=== PATIENT | female | born 1950 | race Caucasian/White ===

== ENCOUNTER 2024-04-28 06:22 | Observation (INO) | payer OTHER ==
[2024-04-26 12:01] LABS: Absolute Basophils 0.1 K/uL (0-0.5); Absolute Eosinophils 0.1 K/uL (0-0.5); Absolute Lymphocytes (CBC) 1.2 K/uL (0.7-4.9); Absolute Neutrophil 3.1 K/uL (1.8-8.0); Basophils % 1.1 % (0-1.3); Eosinophils % 1.3 % (0-4.4); Hematocrit 41.8 % (36.0-45.0); Hemoglobin 14.4 g/dL (12.0-15.0); Lymphocytes % 21.8 % (15.3-44.8); MCH 30.8 pg (27.0-35.0); MCHC 34.4 g/dL (32.0-36.0); MCV 89.7 fL (80-100); Monocytes % 19.1 % (3.3-12.3); Neutrophils % 56.7 % (41.7-73.7); Nucleated Red Blood Cells % 0.1 % (0-0); Platelets 182 thou/uL (152-406); RBC Red Blood Cell Count 4.66 M/uL (3.86-4.86); Red Cell Distribution Width 14.3 % (12.1-15.2)
[2024-04-26 12:02] LABS: Sqamous Epithelial <5 /HPF (None Seen); Urine Bacteria 20-50 /HPF (<20); Urine Bilirubin NEGATIVE (Negative); Urine Blood Negative (Negative); Urine Clarity Extremely Turbid (Clear); Urine Color Yellow (Yellow); Urine Culture Reflex Order REFLEXED; Urine Glucose NEGATIVE (Negative); Urine Ketones NEGATIVE (Negative); Urine Microscopic Reflex YN ORDER UMIC; Urine Mucus Slight /HPF (None Seen); Urine Nitrite 2+ (Negative); Urine Protein NEGATIVE (Negative); Urine RBC <5 /HPF (None Seen); Urine Urobilinogen Normal (Normal); Urine WBC >50 /HPF (<5); Urine WBC Clump Occasional /HPF (None Seen)
[2024-04-26 12:08] LABS: PT Prothrombin Time 11.3 SECONDS (10-13.0); PTT, Activated Partial Thromb 31.1 SECONDS (27.2-37.4); Protime INR 0.99
[2024-04-26 12:19] LABS: Anion Gap 6.6 mEq/L (5.0-15.0); Potassium 4.6 mEq/L (3.5-5.1)
[2024-04-26 13:28] LABS: Blood Morphology Comment NOT SEEN (NOT SEEN); Platelet Estimate ADEQ; White Blood Cell Scan OK (OK)
--- NOTE | 2024-04-27 12:30 | EKG ---
Test Date: 2024-04-26 Test Time: 11:40:26 [place] Supervisor: JAYDON MEASUREMENT RESULTS: Intervals: Rate: 69 ME: 122 QRSD: 82 QT: 390 QTc: 417 [place]: P: 83 ME: 122 QRS: 73 T: 69 INTERPRETIVE STATEMENTS: Normal sinus rhythm Normal ECG No previous ECG available for comparison Electronically Signed On 04-27-24 12:25:54 CDT by Monty Grover
[2024-04-28] MEDS: Ringers Lactate 1,000 ML IV ONE ×2 (06:50→10:02)
[2024-04-28] MEDS: CEFAZOLIN SODIUM 1 GM/VIAL ONE (07:04)
[2024-04-28] MEDS: LIDOCAINE HCL/EPINEPHRINE 20 ML MDV ONE (07:04)
[2024-04-28] MEDS: NA CHLORIDE 0.9% 100 ML ONE (07:06)
[2024-04-28] MEDS ORDERED: dexAMETHasone 10 MG/ML VIAL ONE (07:11)
[2024-04-28] MEDS ORDERED: LIDOCAINE 1% MPF 5 ML VIAL ONE (07:11)
[2024-04-28] MEDS ORDERED: ONDANSETRON 4 MG/2 ML VIAL ONE (07:11)
[2024-04-28] MEDS ORDERED: KETAMINE HCL IN 0.9 % NACL 50 MG/5 ML SYRINGE IV ONE (07:12)
[2024-04-28] MEDS ORDERED: FENTANYL CITR 100 MCG/2 ML ONE ×2 (07:12→09:43)
[2024-04-28] MEDS ORDERED: propofoL 200 MG/20 ML VIAL IV ONE (07:12)
[2024-04-28] MEDS ORDERED: ROCURONIUM 50 MG/5 ML VIAL IV ONE (07:12)
[2024-04-28] MEDS ORDERED: MIDAZOLAM HCL 2 MG/2 ML INJ ONE (07:12)
[2024-04-28] MEDS: CEFAZOLIN SODIUM 2 GM/VIAL ONE (08:15)
[2024-04-28] MEDS: VASOPRESSIN 20 UNIT/ML VIAL ONE (08:31)
[2024-04-28] MEDS ORDERED: MORPHINE 2 MG/ML SYR IV PRN (11:17)
[2024-04-28] MEDS ORDERED: ONDANSETRON 4 MG/2 ML VIAL IV PRN (11:17)
[2024-04-28] MEDS ORDERED: PROMETHAZINE INJ 25 MG/ML AMP IV PRN (11:17)
--- NOTE | 2024-04-28 11:26 | P.BOP ---
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 IRINA Postoperative diagnosis: same and posterior enterocele, apical as well Primary procedure: anterior wall repair w/biol graft, anthony SSLF colpopexy, post wall+enterocele Secondary procedure: repairs, perineorrhaphy, TVT-O cysto [place]ond Worker: Iwona Stewart Estimated blood loss: 100 Specimen: none Findings: 0/+2/-1/4.5/mod/7/0/0/na Anesthesia: General Complications: None Drain(s): Urinary catheter Implants: axis dermis graft and TVT-O Fluids & blood products: UO 100 Transferred to: Recovery Room Condition: Good
--- OUTSIDE RECORDS SUMMARY | 2024-04-28 12:42 | XMS REPORT | Continuity of Care Document ---
Author Name Unknown Address [address] [facility] [address] [place] [address] [facility] [place] Address [address] [facility] 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 Problem Active 2023-02 00:00: 00 [facility] 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 my Problem Active 2023-02 00:00: 00 [facility] 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 Problem Active 2023-02 00:00: 00 [facility] Atrophic vaginitis Atrophic Vaginitis Problem Active 2023-02 00:00: 00 [facility] Heartburn Heartburn Problem Active 2023-02 00:00: 00 [facility] Urge incontinen ce of urine Urge Incontinen ce of Urine Problem Active 2023-02 00:00: 00 [facility] Type 2 diabetes mellitus Type 2 Diabetes Mellitus Problem Active 2023-02 00:00: 00 [facility] Hyperlipid emia Hyperlipid emia Problem Active 2023-02 00:00: 00 [facility] Endometrit is Endometrit is Problem Active 2023-02 00:00: 00 [facility] Allergies, Adverse Reactions, Alerts Allergy Name Allergy Type Status Severity Reaction(s) Onset Date Inactive Date Treating Clinician Comments Source Penicill ins DA Active U 09-10 00:00: 00 [facility] Sulfa (Sulfona mide Antibiot ics) DA Active U 09-10 00:00: 00 [facility] povidone -iodine DA Active U 09-10 00:00: 00 [facility] adhesive DA [facility]SULFONA MIDE ANTIBIOT ICS) Allergy to substanc e Active [facility] Latex Allergy to substanc e Active [facility] PENICILL INS Allergy to substanc e Active [facility] Social History Smoking Status Start Date Stop Date Source Never Smoker [facility] Medications Ordered Medication Name Filled Medication Name Start Date Stop Date Current Medication? Ordering Clinician Indication Dosage Frequency Signature (SIG) Comments Components Source atorvastati n atorvastati n No atorvastat in [facility] Azo Cranberry Azo Cranberry No Azo Cranberry [facility] Centrum Silver Centrum Silver No Centrum Silver [facility] Citracal Regular Citracal Regular No Citracal Regular [facility] meloxicam meloxicam No meloxicam [facility] omeprazole omeprazole No omeprazole [facility] estradiol 0.01% (0.1 mg/gram) vaginal cream Insert 0.5 g 3 times a week by vaginal route for 90 days. estradiol 0.01% (0.1 mg/gram) vaginal cream Insert 0.5 g 3 times a week by vaginal route for 90 days. No .5g Q56H estradiol 0.01% (0.1 mg/gram) vaginal cream Insert 0.5 g 3 times a week by vaginal route for 90 days. [facility] solifenacin 5 mg tablet Take 1 tablet every day by oral route for 90 days. solifenacin 5 mg tablet Take 1 tablet every day by oral route for 90 days. No 1 Q1D solifenaci n 5 mg tablet Take 1 tablet every day by oral route for 90 days. [facility] Vital Signs Vital Name Observation Time Observation Value Comments S ource BP Diastolic 2024-04-20 00:00:00 60 mm[Hg] [facility] BP Systolic 2024-04-20 00:00:00 121 mm[Hg] [facility] BMI (Body Mass Index) 2024-04-20 00:00:00 23 kg/m2 [facility] Height 2024-04-20 00:00:00 62 [in_i] [facility] Body Weight 2024-04-20 00:00:00 125.8 [lb_av] [facility] BP Systolic 2024-01-12 00:00:00 147 mm[Hg] [facility] BMI (Body Mass Index) 2024-01-12 00:00:00 24.1 kg/m2 [facility] Body Weight 2024-01-12 00:00:00 132 [lb_av] [facility] Height 2024-01-12 00:00:00 62 [in_i] [facility] BP Diastolic 2024-01-12 00:00:00 62 mm[Hg] [facility] BP Systolic 2023-12-23 00:00:00 181 mm[Hg] [facility] BP Diastolic 2023-12-23 00:00:00 75 mm[Hg] [facility] Body Weight 2023-12-23 00:00:00 132 [lb_av] [facility] BMI (Body Mass Index) 2023-12-23 00:00:00 24.1 kg/m2 [facility] Height 2023-12-23 00:00:00 62 [in_i] [facility] WEIGHT 2021-09-10 09:43:00 62.118921 kg HEIGHT 2021-09-10 09:43:00 160.02 cm Procedures Procedure Date / Time Performed Performing Clinicia n Source US TRANSVAGINAL 2023-12-25 00:00:00 [facility] Ophthalmology - Cataract Surgery 2013-02-09 00:00:00 [facility] Procedure on Neck 2012-12-24 00:00:00 [facility] Hysterectomy 1979-02-09 00:00:00 [facility] ed[facility] Encounters Start Date/Time End Date/Time Encounter Type Admission Type Attending Clinicians Care Facility Care Department Encounter ID Source 2022-12-19 12:45:00 Inpatient R Holster, Aguila [facility] [id number] [facility] 2024-04-20 00:00:00 2024-04-20 00:00:00 NATIVIDAD Munoz: [address], [place] [address] , Ph. [facility] - GC_GCBZW_Wi urban Con* [id number] [facility] 2024-01-29 00:00:00 2024-01-29 00:00:00 Sejal John MD: [address], [place] [address] , Ph. [facility] - GC_GCBZW_Natasha duggan Con* [id number] [facility] 2024-01-26 00:00:00 2024-01-26 00:00:00 NATIVIDAD Munoz: [address], [place] [address] , Ph. [facility] - GC_GCBZW_Natasha duggan Con* [id number] [facility] 2024-01-12 00:00:00 2024-01-12 00:00:00 Sejal John MD: [address], [place] [address] , Ph. [facility] - GC_GCBZW_Wi urban Con* [id number] [facility] 2023-12-25 00:00:00 2023-12-25 00:00:00 Sejal John MD: [address], [place] [address] , Ph. [facility] - GC_GCBZW_Natasha Andujar* [id number] [facility] 2023-12-23 00:00:00 2023-12-23 00:00:00 Sejal John MD: [address] [place] [address] [address], [place] [address] , Ph. [facility] - GC_GCBZW_Natasha Andujar* [id number] [facility] 2021-12-11 10:43:00 2021-12-11 10:44:00 Outpatient Kajal FullerAguila bradshaw [facility] [id number] [facility] 2021-09-11 07:00:00 2021-09-11 13:20:00 Outpatient Tai Guzman [facility] [id number] [facility] 2021-09-06 13:36:00 2021-09-06 13:37:00 Outpatient R Tai Aguillon [facility] [id number] [facility] 2021-06-29 16:30:00 2021-06-29 16:30:00 Outpatient Kajal Terry Duke [facility] [id number] [facility] 2021-05-10 12:57:00 2021-06-08 23:59:00 Outpatient R Harrison Duke [facility] [id number] [facility] 2021-05-02 09:00:00 2021-05-09 23:59:00 Outpatient Duke Bowden [facility] [id number] [facility] 2021-04-30 09:00:00 2021-04-30 09:00:00 Outpatient Duke Bowden [facility] [id number] [facility] 2021-04-25 09:00:00 2021-04-25 09:00:00 Outpatient Duke Bowden [facility] [id number] [facility] 2021-04-23 09:30:00 2021-04-23 09:30:00 Outpatient R Duke Terry [facility] [id number] [facility] 2021-04-17 09:00:00 2021-04-17 09:00:00 Outpatient R Duke Terry [facility] [id number] [facility] 2021-04-15 09:00:00 2021-04-15 09:00:00 Outpatient R Duke Terry [facility] [id number] [facility] 2021-04-11 15:51:00 2021-04-11 15:51:00 Outpatient R HarrisonDuke [facility] [id number] [facility] 2021-04-08 16:00:00 2021-04-08 23:59:00 Outpatient R HarrisonDuke [facility] [id number] [facility] 2021-04-04 11:30:00 2021-04-04 11:30:00 Outpatient R HarrisonDuke [facility] [id number] [facility] 2021-04-02 14:56:00 2021-04-02 14:56:00 Outpatient R HarrisonDuke [facility] [id number] [facility] 2021-02-27 12:32:00 2021-02-27 12:33:00 Outpatient Jessica Paige [facility] [id number] [facility] 2020-12-10 11:46:00 2020-12-10 11:47:00 Outpatient Aguila Hastings [facility] [id number] [facility] 2019-12-06 11:20:00 2019-12-06 11:21:00 Outpatient Aguila Hastings [facility] [id number] [facility] 2019-12-02 11:15:00 2019-12-02 11:15:00 Outpatient Aguila Patricia [facility] [id number] [facility] 2018-11-29 10:34:00 2018-11-29 10:35:00 Outpatient R Aguila Patricia [facility] [id number] [facility] Results Test Description Test Time Test Comments Results Result Co mments Source [facility] [id number] 13:54:00* Test Item Value Reference Range Interpretation Comme nts Leukocytes (test code = Leukocytes) 2+ Nitrite (test code = Nitrite) negative Urobilinogen (test code = Urobilinogen) Normal Protein (test code = Protein) Negative pH (test code = pH) 7.0 Blood (test code = Blood) Negative Specific Dora (test code = Specific Dora) 1.015 Ketone (test code = Ketone) Negative Bilirubin (test code = Bilirubin) Negative Glucose (test code = Glucose) Negative Appearance (test code = Appearance) Clear Color (test code = Color) Yellow [facility] SURGICAL PATHOLOGY, LEVEL [id number] 13:12:00 [facility] [address] [place] [address] Laboratory Printed: 09/16/21 1312 BETSY DAEMPathology Page: 1 Patient: TRAVIS ALFONSO Birthdate: 1950 Age/Sex: 70/F Spec#: [id number]: Tai Aguillon Jr, MD Specimen Date: 09/11/21 Received Date: 09/11/21 Specimen: POLYP, RECTUM CLINICAL DIAGNOSIS polyp PATHOLOGIC DIAGNOSIS Rectum, distal rectal polyp, stitch distal: - Squamocolumnar junction mucosa with polypoid architecture due to focal areas of mucosal inflammation. - Focal hyperplastic/serrated features associated with inflammation. - Negative for dysplasia or malignancy. COMMENT: This case was reviewed in intradepartmental consultation. Pathologist:Xochilt Grant MD Entered by:09/16/21 - 131 TREVER----- ------- PROCEDURES:[id number] GROSS DESCRIPTION A. POLYP, RECTUM DISTAL The specimen is received in 10% formalin, and is labeled with the patient's information and"distal rectal polyp, stitch distal". The specimen consists of a triangular polypoid tissuemeasuring 2.4 x 1.8 x 0.5 cm in greatest dimensions. The deep margin is inked black. The Patient: TRAVIS ALFONSO Re09/11/21Loc: PAUAL MR#: [id number] CONTINUED ON NEXT PAGE Dis: Sta: JOSE MITCHELL [address] [address] Laboratory Printed: 09/16/21 [facility] DAEMPathology Page: 2 Patient: TRAVIS ALFONSO [id number] (Continued) GROSS DESCRIPTION (Continued) distal end is inked blue. Perpendicular cross sections are submitted in two cassettes, A1-2. Dictated by: Akanksha Palacios Entered by: 09/12/21 - 1153 [facility] MICROSCOPIC DESCRIPTION A microscopic examination was performed to arrive at the diagnostic conclusion reported. Signed (Electronically Signed) Xochilt Grant MD 09/16/21 Patient: TRAVIS ALFONSO Re09/11/21Loc: CHAD MR#: [id number] END OF REPORT Dis: Sta: DEP SDCSARS AG Rapid Tst PreProc [id number] 21:24:00* Test Item Value Reference Range Interpretation Comme nts SARS AG Rapid Tst PreProc ONLY (test code = SARSAG) Confirmatory PCR testing is recommended if the antigen test SARS AG Rapid Tst PreProc ONLY (test code = SARSAG1) the patient. SARS AG Rapid Tst PreProc ONLY (test code = SARSAG1) SARSAGTEST SARS AG Rapid Tst PreProc ONLY (test code = SARSAG1) N [id number] 15:27:00* Test Item Value Reference Range Interpretation Comme nts Hematology (test code = WBCT) 5.0 10x3/uL 3.5-10.5 N Hematology (test code = RBCT) 4.50 10x6/uL 3.90-5.03 N Hematology (test code = HGBT) 13.9 g/dL 12.0-15.5 N Hematology (test code = HCTT) 41.5 % 34.9-44.5 N Hematology (test code = MCV) 92.2 fl 81.6-98.3 N Hematology (test code = MCH) 30.9 pg 27.0-33.0 N Hematology (test code = MCHC) 33.5 g/dL 32.0-36.0 N Hematology (test code = RDW) 12.7 % 11.5-14.5 N Hematology (test code = PLTT) 200 10x3/uL 150-450 N Hematology (test code = MPV) 11.8 fl 7.4-10.4 H Hematology (test code = NE) 47 % 42-75 N Hematology (test code = BA) 2 % 5-11 L Hematology (test code = LY) 24 % 21-51 N Hematology (test code = YASMIN) 6 % 0-10 N Hematology (test code = MO) 19 % 0-10 H Hematology (test code = BAS) 2 % 0-2 N Hematology (test code = PCOMMENT) Appears Adequate [id number] 15:24:00* Test Item Value Reference Range Interpretation Comme nts Chemistry (test code = NA-T) 142 mmol/L 136-145 N Chemistry (test code = K-T) 4.8 mmol/L 3.5-5.1 N Chemistry (test code = CL) 102 mmol/L 98-107 N Chemistry (test code = CO2) 31 mmol/L 23-31 N Chemistry (test code = ANGP) 14 mmol/L 10-20 N Chemistry (test code = BUN) 20 mg/dL 9.8-20.1 N Chemistry (test code = CREATT) 0.88 mg/dL 0.6-1.1 N Chemistry (test code = EGFRCR) 70 Reference Range for Estimated GFR: Greater than 90 mL/min/1.73 p4Sqhgpwua eGFR is based on the CKD-EPI 2020 equation thatdoes not use a race coefficient. Chemistry (test code = GLU-T) 101 mg/dL 83-110 N Chemistry (test code = CA) 10.9 mg/dL 7.8-10.44 H Chemistry (test code = TBILI-T) 0.5 mg/dL 0.2-1.2 N Chemistry (test code = TP) 7.6 g/dL 5.8-8.1 N Chemistry (test code = ALB) 5.1 g/dL 3.4-4.8 H Chemistry (test code = GLOB) 2.5 g/dL 2.4-3.5 N Chemistry (test code = AG) 2.0 g/dL 1.2-2.2 N Chemistry (test code = ALP) 83 U/L 40-110 N Chemistry (test code = AST) 21 U/L 5-34 N Chemistry (test code = ALT) 21 U/L 8-55 N MAMMO Bilat [facility] : 1950 Sex: F Pt Name: TRAVIS ALFONSO [address] Phys: [place] [address] : 1950 Age: 71 SEX:F [phone] Exam Date: 12/11/21 Status: REG CLI Acct: [id number] Loc: BICMAMMO Pt Unit #: [id number] Report #: [id number] CC: Aguila Patricia MD MAMMOGRAPHY REPORT Report Status: Signed Order # Category/Exam [id number] MMO/MAMMO Bilat Screen DDI+LUDWIG ([id number]): . Results 2 Bilateral MAMMO Bilat Screen DDI+LUDWIG. CLINICAL HISTORY: Patient is 71 years old and is seen for screening. The patient has the following family history of breast cancer: sister, at age 65. The patient has no personal history of cancer. The patient has a history of right Lumpectomy in MID 70'S - benign. VIEWS: The views performed were: bilateral craniocaudal with tomosynthesis and bilateral me diolateral oblique with tomosynthesis. FILMS COMPARED: The present examination has been compared toprior imaging studies performed at 11/29/2018, 12/06/2019 and 12/10/2020. This study has been interpreted with the assistance of computer- aided detection. MAMMOGRAM FINDINGS: There are scattered fibroglandular densities. Benign calcifications are noted bilaterally. Nodularity is stable. There are no suspicious masses, suspicious calcifications, or new areas of architectural distortion. IMPRESSION: THERE IS NO MAMMOGRAPHIC EVIDENCE OF MALIGNANCY. A ROUTINE FOLLOW-UP MAMMOGRAM IN 1 YEAR IS RECOMMENDED. THE RESULTS OF THIS EXAM WERE SENT TO THE PATIENT. ACR BI-RADS Category 2 - Benign finding MAMMOGRAPHY NOTE: 1. A negative mammogram report should not delay a biopsy if a dominant of clinicallysuspicious mass is present. 2. Approximately 10% to 15% of breast cancers are not detected by mammography. 3. Adenosis and dense breasts may obscure an underlying neoplasm. Reported by: AJ BRUSH MD Electonically Signed: [id number] Reported By: Mario Brush MD Electronically Signed Date/Time: 12/11/21 1454 Technologist: [email or web address] Dictated Date/Time: 12/11/21 Transcribed Date/Time: 12/11/21MAMMO Bilat Screen DDI[facility]LUDWIG [facility] TRA[facility]: 1950 Sex: F Pt Name: TRAVIS ALFONSO [address] Phys: [place] [address] : 1950 Age: 71 SEX:F [phone] Exam Date: 12/11/21 Status: REG CLI Acct: [id number] Loc: BICMAMMO Pt Unit #: [id number] Report #: [id number] CC: Aguila Patricia MD MAMMOGRAPHY REPORT Report Status: Signed Order # Category/Exam [id number] MMO/MAMMO Bilat Screen DDI+LUDWIG ([id number]): . Results 2 Bilateral MAMMO Bilat Screen [facility]DI[facility]LUDWIG. CLINICAL HISTORY: [facility] is 71 [facility] The patient has the following family history of breast cancer: sister, at age 65. The patient has no personal history of cancer. The patient has a history of right Lumpectomy in MID 70'S -benign. VIEWS: The views performed were: bilateral craniocaudal with tomosynthesis and bilateral mediolateral oblique with tomosynthesis. FILMS COMPARED: The present examination has been compared to prior imaging studies performed at 11/29/2018, 12/06/2019 and 12/10/2020. This study has been interpreted with the assistance of computer- aided detection. MAMMOGRAM FINDINGS: There are scattered fibroglandular densities. Benign calcifications are noted bilaterally. Nodularity is stable. There are nosuspicious masses, suspicious calcifications, or new areas of architectural distortion. IMPRESSION:THERE IS NO MAMMOGRAPHIC EVIDENCE OF MALIGNANCY. A ROUTINE FOLLOW-UP MAMMOGRAM IN 1 YEAR IS RECOMMENDED. THE RESULTS OF THIS EXAM WERE SENT TO THE PATIENT. ACR BI-RADS Category 2 - Benign finding MAMMOGRAPHY NOTE: 1. A negative mammogram report should not delay a biopsy if a dominant of clinically suspicious mass is present. 2. Approximately 10% to 15% of breast cancers are not detected by mammography. 3. Adenosis and dense breasts may obscure an underlying neoplasm. Reported by: AJ BRUSH MD Electonically Signed: [id number] Reported By: Mario Brush MD ElectronicallySigned Date/Time: 12/11/21 1454 Technologist: NEHA Dictated Date/Time: 12/11/21 Transcribed Date/Time: 12/11/21XR Cerv Sp Ap Lat STANDARD [facility] BRYANName: TRAVIS ALFONSO : 1950 [facility] Pt Name: TRAVIS ALFONSO [address] Phys: [place] [address] : 1950 Age: 70 SEX:F [phone] Exam Date: 02/27/21 Status: REGCLI Acct: [id number] Loc: TBSIINJG Pt Unit #: [id number] Report #: [id number] CC: Jessica Keating PA-C IMAGING SERVICES REPORT Order # Category/Exam [id number] RAD/XR Cerv Sp Ap Lat STANDARD ([id number]): . Results Cervical spine 3 views: 02/27/2021 COMPARISON: 08/20/2012 HISTORY: Degenerative disc disease, right arm pain and neck pain FINDINGS: Anterior discectomy and fusion hardware is present at C5-6, unchanged when compared to the 08/20/2012 examination. There is an intervertebral disc deviceat C5-6. There is disc space narrowing and anterior osteophyte formation at C6-7. There is mild anterolisthesis at C6-7 measuring 2-3 mm. There is no prevertebral soft tissue abnormality noted. Thereare degenerative changes at the atlantoaxial interspace. There is disc space narrowing with degenerative endplate change and anterior osteophyte formation at C7-T1, stable. Open-mouth odontoid view demonstrate a normal-appearing densand C1-2 articulation. Frontal imaging demonstrates lower cervicalspine facet and uncovertebral osteophyte formation, right greater than left, most prominent at C6-7. IMPRESSION: Postoperative and degenerative change as detailed above. Reported By: Chase Schneider MD Electronically Signed Date/Time: 02/27/21 1253 Technologist: KARRIE Dictated Date/Time: 02/27/21 1251 Transcribed Date/Time:MRI Cervical Spine WO Con [facility] BR[facility]ANName[facility] TRAVIS ALFONSO : 1950 [facility] Pt Name: TRAVIS ALFONSO [address] Phys: [place] [address] : 1950 Age: 70 SEX:F [phone] Exam Date: 02/27/21 Status: REG CLI Acct: [id number] Loc: TBSIIMAG Pt Unit #: [id number] Report #: [id number] CC: Jessica Keating PA-C MRI REPORT Order # Category/Exam [id number] MRI/MRI Cervical Spine WO Con ([id number]): . Results EXAM: MRI cervical spine without contrast HISTORY: Right arm and neck pain COMPARISON: 02/27/2021 TECHNIQUE: Multiplanar multisequence MR images were obtained of the cervical spine without contrast. FINDINGS: The patient is status post anterior fusion of C5 and C6. The vertebral bodies and intervertebral discs demonstrate normal height and alignment without fracture or subluxation. The visualized cord demonstrates normal signal throughout. The central canal within the cord is barely visualized in the lower cervical region. The craniocervical junction is unremarkable. The prevertebral soft tissues are unremarkable. No paraspinal soft tissue abnormality is seen. C2/3: No significant posterior bulge or protrusion. Mild left posterior facet arthrosis. No central canal stenosis. No neural foraminal stenosis. C3/4: No significant posterior bulge or protrusion. Moderate left posterior facet arthrosis. No central canal stenosis. No neural foraminal stenosis. C4/5: No significant posterior bulge or protrusion. Mild bilateral posterior facet arthrosis. No central canal stenosis. Mild bilateralneural foraminal stenosis. C5/6: Small posterior disc osteophyte complex. No posterior facet arthrosis. Mild central canal stenosis. No neural foraminal stenosis. C6/7: Minimal posterior disc osteophyte complex. Moderate right posterior facet arthrosis. Mild central canal stenosis. Mild bilateral neural foraminal stenosis. C7/T1: Small generalized concentric disc bulge. No posterior facet arthrosis. No central canal stenosis. No neural foraminal stenosis. IMPRESSION: Degenerative and postsurgical changes of cervical spine as above. Reported By: Jr Zhou MD Electronically Signed Date/Time: 02/27/21 133 Technologist: KARRIE Dictated Date/Time: 02/27/21 1334 Transcribed Date/Time:MAMMO Bilat Screen DDI+LUDWIG [facility]: TRAVIS ALFONSO ANDRE : 1950 Sex: F Pt Name: TRAVIS ALFONSO [address] Phys: Aguila Patricia MD [place] [address] : 1950 Age: 70 SEX:F [phone] Exam Date: 12/10/20 Status: REG CLI Acct: [id number] Loc: BICMAMMO Pt Unit #: [id number] Report #: [id number] CC: Aguila Patricia MD MAMMOGRAPHY REPORT Order # Category/Exam [id number] MMO/MAMMO Bilat Screen DDI+LUDWIG ([id number]): . Results 2 Bilateral MAMMO Bilat Screen DDI+LUDWIG. CLINICAL HISTORY: Patient is 70 years old and is seen for screening. The patient has no family history of breast cancer. The patient has no personal history of cancer. The patient has a history of right Lumpectomy in MID 70'S - benign. VIEWS: The views performed were: bilateralcraniocaudal with tomosynthesis and bilateral mediolateral oblique with tomosynthesis. FILMS COMPARED: The present examination has been compared to prior imaging studies performed at [place] on 11/29/2018 and 12/06/2019. This study has been interpreted with the assistance of computer-aided detection. MAMMOGRAM FINDINGS: There are scattered fibroglandular densities. Benign calcifications are noted bilaterally. Nodularity is stable. There are no suspicious masses, suspicious calcifications, ornew areas of architectural distortion. IMPRESSION: THERE IS NO MAMMOGRAPHIC EVIDENCE OF MALIGNANCY.A ROUTINE FOLLOW-UP MAMMOGRAM IN 1 YEAR IS RECOMMENDED. THE RESULTS OF THIS EXAM WERE SENT TO THE PATIENT. ACR BI-RADS Category 2 - Benign finding MAMMOGRAPHY NOTE: 1. A negative mammogram report should not delay a biopsy if a dominant of clinically suspicious mass is present. 2. Approximately 10% to 15% of breast cancers are not detected by mammography. 3. Adenosis and dense breasts may obscure an underlying neoplasm. Reported by: AJ BRUSH MD Electonically Signed: [id number] Re ported By: Mario Brush MD Electronically Signed Date/Time: 12/10/20 1342 Technologist: [facility] Dictated Date/Time: 12/10/20 Transcribed Date/Time: 12/10/20MAMMO Bilat Screen DDI+LUDWIG [facility] BRYANName: TRAVIS ALFONSO : 1950 Sex: F Pt Name: TRAVIS ALFONSO [address] Phys: [place] [address] : 1950 Age: 70 SEX:F [phone] Exam Date: 12/10/20 Status: REG CLI Acct: [id number] Loc: BICMAMMO Pt Unit #: [id number] Report #: [id number] CC: Aguila Patricia MD MAMMOGRAPHY REPORT Order # Category/Exam [id number] MMO/MAMMO Bilat Screen DDI+LUDWIG ([id number]): . Results 2 Bilateral MAMMO Bilat Screen DDI+LUDWIG. CLINICAL HISTORY: Patient is 70 years old and is seen for screening. The patient has no family history of breast cancer. The patient has no personal history of cancer. The patienthas a history of right Lumpectomy in MID 70'S - benign. VIEWS: The views performed were: bilateral craniocaudal with tomosynthesis and bilateral mediolateral oblique with tomosynthesis. FILMS COMPARED: The present examination has been compared to prior imaging studies performed at [place] on 11/29/2018 and 12/06/2019. This study has been interpreted with the assistance of computer-aided detection. MAMMOGRAM FINDINGS: There are scattered fibroglandular densities. Benign calcifications are noted bilaterally. Nodularity is stable. There are no suspicious masses, suspicious calcifications, or new areas of architectural distortion. IMPRESSION: THERE IS NO MAMMOGRAPHIC EVIDENCE OF MALIGNANCY.A ROUTINE FOLLOW-UP MAMMOGRAM IN 1 YEAR IS RECOMMENDED. THE RESULTS OF THIS EXAM WERE SENT TO THE PATIENT. ACR BI-RADS Category 2 - Benign finding MAMMOGRAPHY NOTE: 1. A negative mammogram report should not delay a biopsy if a dominant of clinically suspicious mass is present. 2. Approximately 10% to 15% of breast cancers are not detected by mammography. 3. Adenosis and dense breasts may obscure an underlying neoplasm. Reported by: AJ BRUSH MD Electonically Signed: [id number] Re ported By: Mario Brush MD Electronically Signed Date/Time: 12/10/20 1342 Technologist: [place] Dictated Date/Time: 12/10/20 Transcribed Date/Time: 12/10/20DEXA BONE DENSITY STUDY [facility] [place]: TRAVIS ALFONSO : 1950 Sex: F Pt Name: TRAVIS ALFONSO [address] [facility]. Phys: [place] [address] : 1950 Age: 69 SEX:F [phone] Exam Date: 12/06/19 Status: REG CLI Acct: [id number] Loc: NIK Pt Unit #: [id number] Report #: [id number] CC: Aguila Patricia MD BONE DENSITY REPORT Order # Category/Exam [id number] BD/DEXA BONE DENSITY STUDY ([id number]): . Results Exam: DEXA Bone Density 12/06/19 HISTORY: Postmenopausal screening for osteoporosis. Lumbar Spine: BMD (g/cm2) T- SCORE Z-SCORE L1 1.170 1.6 3.6 L2 1.267 2.2 4.3 L3 1.301 2.0 4.2 L4 1.230 1.5 3.9 L1-L4 1.234 1.7 3.9 Femoral Neck: 0.854 0.0 1.9 Total Femur: 0.985 0.3 1.9 Impression: Normal BMD. POS: AH Reported By: Mario Brush MD Electronically Signed Date/Time: 12/06/19 1418 Technologist: DEIDRA.ADRosa Dictated Date/Time: 12/06/19 1158 Transcribed Date/Time: 12/06/19 1348MAMMO Bilat Screen [facility] [place]: TRAVIS ALFONSO : 1950 Sex: F Pt Name: TRAVIS ALFONSO [address] Phys: [place] [address] : 1950 Age: 69 SEX:F [phone] Exam Date: 12/06/19 Status: REG CLI Acct: [id number] [facility] Unit #: [id number] Report #: [id number] CC: Aguila Patricia MD MAMMOGRAPHY REPORT Order # Category/Exam [id number] MMO/MAMMO Bilat Screen DDI+LUDWIG ([id number]): . Results 2 Bilateral MAMMO BilatScreen DDI+LUDWIG. CLINICAL HISTORY: Patient is 69 years old and is seen for screening. The patient has no family history of breast cancer. The patient has no personal history of cancer. The patient has a history of right Lumpectomy in MID 70'S - benign. VIEWS: The views performed were: bilateral craniocaudal with tomosynthesis and bilateral mediolateral oblique with tomosynthesis. FILMS COMPARED: The present examination has been compared to prior imaging studies performed at and at [place] [facility] on 11/29/2018. This study has been interpreted with the assistance of computer-aided detection. MAMMOGRAM FINDINGS: There are scattered fibroglandular densities. There are stable nodules seen in both breasts. There are no suspicious masses, suspicious calcifications, or new areas of architectural distortion. IMPRESSION: THERE IS NO MAMMOGRAPHIC EVIDENCE OF MALIGNANCY. A ROUTINE FOLLOW-UP MAMMOGRAM IN 1 YEAR IS RECOMMENDED. THE RESULTS OF THIS EXAM WERE SENT TO THE PATIENT. ACR BI-RADS Category2 - Benign finding MAMMOGRAPHY NOTE: 1. A negative mammogram report should not delay a biopsy if a dominant of clinically suspicious mass is present. 2. Approximately 10% to 15% of breast cancers arenot detected by mammography. 3. Adenosis and dense breasts may obscure an underlying neoplasm. Reported by: KIMO CABRAL MD Electonically Signed: [id number] Reported By: Kimo Cabral MD Electronically Signed Date/Time: 12/06/19 1508 Technologist: DEIDRA.ADRosa Dictated Date/Time: 12/06/19 Transcribed Date/Time: 12/06/19MAMMO Bilat Screen DDI+LUDWIG [facility] BRYANName: TRAVIS ALFONSO : 1950 Sex: F Pt Name: TRAVIS ALFONSO [address] Phys: [place] [address] : 1950 Age: 69 SEX:F [phone] Exam Date: 12/06/19 Status: REG CLI Acct: [id number] Loc: NIK Pt Unit #: [id number] Report #: [id number] CC: Aguila Patricia MD MAMMOGRAPHY REPORT Order # Category/Exam [id number] MMO/MAMMO Bilat Screen DDI+LUDWIG ([id number]): . Results 2 Bilateral MAMMO Bilat Screen DDI+LUDWIG. CLINICAL HISTORY: Patient is 69 years old and is seen for screening. The patient has no family history of breast cancer. The patient has no personal history of cancer. The patient hasa history of right Lumpectomy in MID 70'S - benign. VIEWS: The views performed were: bilateral craniocaudal with tomosynthesis and bilateral mediolateral oblique with tomosynthesis. FILMS COMPARED: The present examination has been compared to prior imaging studies performed at and at [facility] 11/29/2018. This study has been interpreted with the assistance of computer-aided detection. MAMMOGRAM FINDINGS: There are scattered fibroglandular densities. There are stable nodules seen in both breasts. There are no suspicious masses, suspicious calcifications, or new areas of architectural distortion. IMPRESSION: THERE IS NO MAMMOGRAPHIC EVIDENCE OF MALIGNANCY. A ROUTINE FOLLOW-UP MAMMOGRAM IN 1 YEAR IS RECOMMENDED. THE RESULTS OF THIS EXAM WERE SENT TO THE PATIENT. ACR BI-RADS Category 2 - Benign finding MAMMOGRAPHY NOTE: 1. A negative mammogram report should not delay a biopsy if a dominant of clinically suspicious mass is present. 2. Approximately 10% to 15% of breast cancers are not detected by mammography. 3. Adenosis and dense breasts may obscure an underlying neoplasm. Reported by: KIMO CABRAL MD Electonically Signed: [id number] Reported By: Kimo Cabral MD El ectronically Signed Date/Time: 12/06/19 1508 Technologist: IRINA Dictated Date/Time: 12/06/19 Transcribed Date/Time: 12/06/19MAMMO Bilat Screen DDI+LUDW[facility] Pt Name: TRAVIS ALFONSO [address] [facility]. Phys: [place] [address] : 1950 Age: 68 SEX:F [phone] Exam Date: 11/29/18 Status: DEP CLI Acct: [id number] Loc: NIK Pt Unit #: [id number] Report #: [id number] CC: Aguila Patricia MD MAMMOGRAPHY REPORT Order # Category/Exam [id number] MMO/MAMMO Bilat Screen DDI+LUDWIG ([id number]): . Results 2Bilateral MAMMO Bilat Screen DDI+LUDWIG. CLINICAL HISTORY: Patient is 68 years old and is seen for screening. The patient has no family history of breast cancer. The patient has no personal history of cancer. The patient has a history of right Lumpectomy in MID 70'S - benign. VIEWS: The views performed were: bilateral craniocaudal with tomosynthesis and bilateral mediolateral oblique with tomosynthesis. FILMS COMPARED: The present examination has been compared to prior imaging studies performed at This study has been interpreted with the assistance of computer-aided detection. MAMMOGRAM FINDINGS: There are scattered fibroglandular densities. There are stable benign appearing calcifications seen in both breasts. Nodularity is stable. There are no suspicious masses, suspicious calcifications,or new areas of architectural distortion. IMPRESSION: THERE IS NO MAMMOGRAPHIC EVIDENCE OF MALIGNANCY. A ROUTINE FOLLOW-UP MAMMOGRAM IN 1 YEAR IS RECOMMENDED. THE RESULTS OF THIS EXAM WERE SENT TO THE PATIENT. ACR BI-RADS Category 2 - Benign finding MAMMOGRAPHY NOTE: 1. A negative mammogram report should not delay a biopsy if a dominant of clinically suspicious mass is present. 2. Approximately 10% to 15% of breast cancers are not detected by mammography. 3. Adenosis and dense breasts may obscure an underlying neoplasm. Reported by: CHARLES ROSENBAUM MD Electonically Signed: [id number] Reported By: Charles Rosenbaum MD Electronically Signed Date/Time: 12/08/18 0957 Technologist: LUIZ Dictated Date/Time: 12/08/18 Transcribed Date/Time: 11/29/18[facility]MO [facility] Pt Name: TRAVIS ALFONSO [address] Phys: [place] [address] : 1950 Age: 68 SEX:F [phone] Exam Date: 11/29/18 Status: DEP CLI Acct: [id number] Loc: NIK Pt Unit #: [id number] Report #: [id number] CC: Aguila Patricia MD MAMMOGRAPHY REPORT Order # Category/Exam [id number] MMO/MAMMO Bilat Screen DDI+LUDWIG ([id number]): . Results 2Bilateral MAMMO Bilat Screen DDI+LUDWIG. CLINICAL HISTORY: Patient is 68 years old and is seen for screening. The patient has no family history of breast cancer. The patient has no personal history of cancer. The patient has a history of right Lumpectomy in MID 70'S - benign. VIEWS: The views performed were: bilateral craniocaudal with tomosynthesis and bilateral mediolateral oblique with tomosynthesis. FILMS COMPARED: The present examination has been compared to prior imaging studies performed at This study has been interpreted with the assistance of computer-aided detection. MAMMOGRAM FINDINGS: There are scattered fibroglandular densities. There are stable benign appearing calcifications seen in both breasts. Nodularity is stable. There are no suspicious masses, suspicious calcifications,or new areas of architectural distortion. IMPRESSION: THERE IS NO MAMMOGRAPHIC EVIDENCE OF MALIGNANCY. A ROUTINE FOLLOW-UP MAMMOGRAM IN 1 YEAR IS RECOMMENDED. THE RESULTS OF THIS EXAM WERE SENT TO THE PATIENT. ACR BI-RADS Category 2 - Benign finding MAMMOGRAPHY NOTE: 1. A negative mammogram reportshould not delay a biopsy if a dominant of clinically suspicious mass is present. 2. Approximately 10% to 15% of breast cancers are not detected by mammography. 3. Adenosis and dense breasts may obscu re an underlying neoplasm. Reported by: CHARLES ROSENBAUM MD Electonically Signed: [id number] Reported By: Charles Rosenbaum MD Electronically Signed Date/Time: 12/08/18 0957 Technologist: LUIZ Dictated Date/Time: 12/08/18 Transcribed Date/Time: 11/29/18 Notes Date/Time Note Provider Source 2021-09-11 12:08:00 [facility] Name: TRAVIS ALFONSO [address] : 1950, Age: 70, Sex: ALONZO Suarez [id number] Unit #: [id number], Status: [facility] [phone] [place] [facility] [place]ict[place] by: Tai Aguillon Jr, MD Admission Date: Report #: [id number] Discharge Date: 09/11/21 CC: CHRIS PATRICIA MD, John A Jr MD OPERATIVE NOTE DATE OF PROCEDURE: 09/11/2021 PREOPERATIVE DIAGNOSIS: Distal rectal mass. PROCEDURE PERFORMED: Transanal excision of rectal mass. INDICATIONS: A 70-year-old female, who colonoscopy was found to have a mass in the distal rectum at the dentate line. FINDINGS: A 1.5 x 2 cm sessile distal rectal polyp anterior rectum. DESCRIPTION OF PROCEDURE: After informed consent was obtained, the patient had undergone mechanical bowel prep at home. She was given general endotracheal anesthesia and placed in the lithotomy position. A local anesthesia was infiltrated subcutaneously and deep as a four-quadrant anal block. A bivalve anal retractor was inserted. Inspection performed. The mass was anterior. I used additional local to elevate the mucosa and then placed a 3-0 chromic suture proximal to the mass and then the mucosa was excised with rim of normal mucosa circumferentially utilizing the LigaSure. This was then marked with a stitch distally, sent to Pathology for further analysis. Hemostasis was assured. The mucosa was reapproximated with a running 3-0 chromic, run from distal to proximal and back to distal and tied upon itself. Hemostasis was assured. Gelfoam impregnated with bacitracin inserted within the anal canal. Sterile bandage was applied. The patient tolerated the procedure well, transferred to Recovery in good condition. Sponge and needle count verified correct x2. Job ID: [id number] Dictated by: Tai Aguillon Jr, MD <Electronically signed by Tai Aguillon Jr, MD> 09/12/21 1152 Dictated Date/Time: 09/11/21 1137 Transcribed Date/Time: 09/11/21 1200 [facility] Technician: Tai Barone STLSJH
[2024-04-28 14:55] VITALS: O2SAT 97
[2024-04-28 15:38] VITALS: BMI 24.1
[2024-04-28] MEDS: Ringers Lactate 1,000 ML IV SCH (15:39)
[2024-04-28] MEDS: CEFAZOLIN 1 GM in NA CHLORIDE 0.9% 50 ML IVPB SCH (16:50)
[2024-04-28] MEDS: ACETAMINOPHEN 500 MG TAB PO PRN (20:27)
[2024-04-28] MEDS: ATORVASTATIN 20 MG TAB PO SCH (20:32)
--- NOTE | 2024-04-29 02:21 | OP ---
Date of Procedure: 04/28/2024 Surgeon: Sejal John MD Health Social Work Professor: Iwona Barroso Preoperative Diagnoses: Stage III anterior wall prolapse, posterior wall prolapse, and stress urinar y incontinence, vault prolapse. Postoperative Diagnoses: Stage III anterior wall prolapse, vault prolapse, posterior wall and freight tallier ior enterocele defects as well as apical defect, and stress urinary incontinence. Procedures Performed: 1. Vaginal anterior wall repair with biologic graft augmentation. 2. Bilateral sacrospinous ligament fixation/colpopexy. 3. Posterior wall and enterocele repairs. 4. Perineorrhaphy. 5. Tension-free vaginal tape on cystoscopy (mid urethral sling transobturator). Estimated Blood Loss: 100. Specimens: No specimens. Complications: No complications. Drains: Barrera catheter and vaginal packing. Findings: POP-Q 0, +2, -1, 4.5, moderate, 7, 0, 0, NA. Cystoscopy was negative. Well-reduced anter ior and posterior wright, and good reconstruction of the perineal body. Again, cysto was negative wit h good ureteric jets from either side and no evidence of any mesh in the bladder. Graft: Sciota Dermis graft and TVT-O. Urine Output: 100. Disposition: Transferred to the recovery room in a stable condition. Indication: The patient is a 73-year-old lady who presented with urinary complaints of po stvoid dribbling, urinary frequency, and stress incontinence. Significant leakage with laugh and cou gh was noted as well, and she was starting to feel vaginal bulge symptoms over the past few months, n ow to the size of a klamath. Does not have any fecal incontinence and recurrent urinary tract infection s. She is status post hysterectomy and BSO endometriosis. The patient underwent a transvaginal ultrasound and cystoscopy, and urodynamic testing, bladder logs, and incontinence questionnaire. No adnexal masses were noted on ultrasound. Cystoscopy did not tania w any tumors or stones or diverticula. Urodynamics showed a significant overactive bladder, low PVR, and a low capacity bladder, significant IRINA, so we discussed about the options of conservative manag ement with a pessary, pelvic floor rehab, and observation versus surgical repair laparosco pic. The patient wanted to proceed with a vaginal repair. Declined a full pessary. We will do post operative pelvic floor rehab for incontinence. She was started on overactive bladder pathway and we discussed repairing anterior apical and posterior wright and mid urethral sling. All benefits and ris ks were explained to the patient. She was medically cleared and then scheduled for surgery. In the preoperative area, she was re-consented and her son was present by the side to ask and understand que stions and circumstances. Procedure In Detail: She was taken back to the OR after complete counseling. She has been in supine fashion on the operating table. 2 g of Ancef was given. Lower abdomen, vulva, vagina, perineum, an d medial thighs were prepped and draped in a sterile fashion. Barrera was placed to drain the bladder and then clamped and retracted superiorly. Taos retractor was fixed in place with 4 needle hook s for retraction, then procedure started. POP-Q was done and the patient had the POP-Q as discussed above 0, +2, -1, 4.5, moderate, 7, 0, 0, NA . Understanding that the anterior wall prolapse was more significant and that apex was also signific antly down, we planned to place at the vaginal apex and after palpating the ischial spine and all the anatomical bony landmarks, then procedure was started. Anterior wall repair with biologic graft: A midline incision was made from under the urethrovesical junction to the center of the vaginal apex after injecting dilute vasopressin 20 mL with a 15 blade. Flaps were raised on both sides. The underlying connective tissue and the bladder were dissected aw ay. Lateral paravaginal spaces were accessed and ischial spines. The sacrospinous ligame nts were cleaned out by sweeping medial and posterior to the ischial spine on both sides. Then, late ral and superior to the ischial spine, the white line was cleared up on both sides. Then, I was able to dissect the rectum down in the middle. The Capio device was taken and 2 Prolene sutures, 1 on ea ch side were placed in the mid ligament on the anterior surface of it without encircling the entire l igament. These were held on clamps and then 2 PDS sutures were taken using the Capio and placed on t he white line about a centimeter away from the ischial spine. These were also well position, then th e sutures were placed. They were attached to the center of the midline and distally under the UVJ as well as to both sides. Then, 3 Prolene sutures were used at the apex . Once all this was set up, then a biologic Dermagraft was brought in and it was cut into 8 x 6 x 5 tra pezoid, soaked according to and brought in, and attached in the midline in the proximal an d distal regions with Prolene and the PDS, respectively, 2-0 suture. The sacrospinous sutures were attached to the area of the designated sacrospinous attachment on the g raft were hooked with Prolene sutures. Then, paravaginal space white line sutures were PDS from the white line. Once these were all attached, the sacrospinous sutures were tied down on the ligament on both sides. Then, the PDS sutures were tied to the white line. There was excellent reduction of th e anterior vaginal wall. 3-0 Monocryl was used to close the anterior portion of the apical enterocel e. Sacrospinous ligament fixation/colpopexy was performed through the anterior approach, so I was able t o incorporate that with the anterior repair. The vaginal epithelium was slightly trimmed less than half a centimeter on each side and closed with in the midline and continuous running 2-0 Vicryl suture was used to close this portion. Mid urethral sling: Two Allis clamps were placed on either side of the mid urethra, injected with di lute vasopressin 1 cm incision made in the midline and dissected the ipsilateral obturator space hugging the inferior pubic ramus going past the obturator membrane and opening up the tract fo r proper lay down of the mesh. The mesh was rolled onto the needle. Wing guide was placed through the pre-created track and needle passed hugging the inferior pubic ramus and exiting 2 cm lateral to the groin fold avoiding the adduc tor longus tendon. Similar pass was taken on both sides. Plastic dilators were pulled out and cut. Then plastic sheath and mesh were held with Altagracia clamps. in the midline between the uret hra and the mesh with the help of Metzenbaum scissors. The sheaths were removed. Mesh cut flush wit h the skin and skin closed with Dermabond. The antibiotic irrigation was used on the mesh in the mid line and then closed with the help of 3-0 Vicryl in a continuous running fashion. Cystoscopy was performed after the sling was completed, with a 17-Persian sheath, 30-degree lens, norm al saline. There were excellent jets of urine from both ureteric orifices. No evidence of any traum a to the ureters or the rest of the bladder, and no pathology like tumor was present. Posterior wall repair: Posterior wall was then marked into alvaro-shaped incision for the de-epithe lialization of the posterior wall as well as the perineum. Once this was done with marking and then excising the epithelium, then access was gained into the perineum as well as the posterior compartmen t. The posterior compartment dissection was taken all the way to the apex. Here, I could not dissec t the posterior enterocele here. The enterocele was reduced with a 3-0 Monocryl pursestring suture. The posterior wall was then repaired using a continuous running 2-0 Vicryl suture and interrupted 2- 0 Vicryl for perineorrhaphy in 2 layers. Then, the vaginal epithelium was brought down and trimmed a ppropriately, and closed with the help of continuous running 2-0 Vicryl suture to the vestibule and t hen 3-0 Vicryl after that. Rectal exam was negative. Vaginal packing was placed. Holly was replace d. The patient was recovered from anesthesia and taken to PACU in stable condition. She will finish her Levaquin that has been given to her preop. She will follow up in 7 to 10 days for 1-week postop and in 6 weeks for 6-week postop. Voiding trials in the morning and if she fails, she will come [facility] on Thursday for a voiding trial. Her was debriefed about the procedure. CUAUHTEMOC/WILFRED Voice ID: [id number] Report ID: [id number]
[2024-04-29] MEDS: PANTOPRAZOLE 40MG TABLET PO SCH (05:57)
[2024-04-29] MEDS: CRANBERRY FRUIT EXTRACT 425 MG CAPSULE PO SCH (08:18)
[2024-04-29] MEDS: MELOXICAM 7.5 MG TAB PO SCH (08:18)
[2024-04-29] MEDS: Multi-VIT(Centravite Senior) 1 TAB TAB PO SCH (08:18)
[2024-04-29] MEDS ORDERED: CRANBERRY FRUIT EXTRACT 425 MG CAPSULE PO SCH (09:00)
[2024-04-29] MEDS: SOLIFENACIN SUCCIN 5 MG TAB PO SCH (09:00)
[2024-04-29 10:33] VITALS: BP 148/80; TEMP 98
== END 2024-04-29 10:53 | disposition home health service (06) ==
LOC: OR 06:22 → 2ND 12:14
PROVIDERS: ADMIT Obstetrics & Gynecology; ATTEND Obstetrics & Gynecology
PROC: 0USG0ZZ Reposition Vagina, Open Approach (ICD-10-PCS; 2024-04-28)
PROC: 0JUC0JZ Supplement of Pelvic Region Subcutaneous Tissue and Fascia with Synthetic Substitute, Open Approach (ICD-10-PCS; 2024-04-28)
PROC: 0JQC0ZZ Repair Pelvic Region Subcutaneous Tissue and Fascia, Open Approach (ICD-10-PCS; 2024-04-28)
PROC: 0HQ9XZZ Repair Perineum Skin, External Approach (ICD-10-PCS; 2024-04-28)
PROC: 0TSD0ZZ Reposition Urethra, Open Approach (ICD-10-PCS; principal; 2024-04-28 07:30)
DX: N99.3 Prolapse of vaginal vault after hysterectomy (principal); N39.46 Mixed incontinence
CPT/HCPCS: 93005; 87088; 85025; 81001; 87086; 80048; 36415; 86900; 86850; 85610; 86901; 82947 ×3; 85730; 87077; 87186; 94010; 57288; 57282; 57267; 57260; J2704; J2003; J2250; J3010 ×2; J1100; J2405; G0378 ×3; J7120 ×4; J0690 ×3; G0379; A4314